=== PATIENT | female | born 1985 | race Caucasian/White ===

== ENCOUNTER 2021-03-12 22:41 | Emergency (ER) | payer SELFPAY ==
[2021-03-12 23:22] LABS: HEMOGLOBIN 12.3 gm/dl (12.3-15.3); RED BLOOD COUNT 4.34 M/UL (4.00-5.10); WHITE BLOOD COUNT 6.5 K/UL (4.5-11.0)
[2021-03-13] LABS: BUN/CREATININE RATIO 24 (0-10)
== END 2021-03-13 01:11 | disposition home or self-care (01) ==
LOC: ER1 22:41
PROVIDERS: Physician Assistant
DX: R10.31 Right lower quadrant pain (principal); F17.210 Nicotine dependence, cigarettes, uncomplicated
CPT/HCPCS: 80053; 81001; 83690; 84703; 85025; 87086; 99284; Q9967

== ENCOUNTER 2021-03-27 18:10 | Emergency (ER) | payer OTHER ==
[2021-03-27 18:57] LABS: HEMOGLOBIN 11.4 gm/dl (12.3-15.3); RED BLOOD COUNT 4.07 M/UL (4.00-5.10); WHITE BLOOD COUNT 5.9 K/UL (4.5-11.0)
[2021-03-27 19:22] LABS: BUN/CREATININE RATIO 24 (0-10)
[2021-03-27] MEDS ORDERED: OMNICEF 300 MG300 MG PO (21:36)
[2021-03-29 23:11] LABS: CHLAMYDIA TRACHOMATIS, NAA Negative (Negative); NEISSERIA GONORRHOEAE, NAA Positive (Negative)
== END 2021-03-27 21:42 | disposition home or self-care (01) ==
LOC: ER1 18:10
PROVIDERS: Emergency Medicine
DX: N83.202 Unspecified ovarian cyst, left side (principal); N39.0 Urinary tract infection, site not specified; F17.200 Nicotine dependence, unspecified, uncomplicated
CPT/HCPCS: 76830; 80053; 81001; 83690; 84703; 85025; 87086; 87210; 99284; Q9967